=== PATIENT | female | born 1950 | race Caucasian/White ===

== ENCOUNTER 2018-10-02 07:13 | Day surgery (SDC) | payer OTHER ==
[2018-10-02] MEDS ORDERED: MIDAZOLAM 1 MG/ML 2 ML INJ ×2 (09:58)
[2018-10-02] MEDS ORDERED: FENTAnyl 50 MCG/ML VIAL (09:58)
== END 2018-10-02 12:24 | disposition home or self-care (01) ==
LOC: GIL 07:13
DX: K29.50 Unspecified chronic gastritis without bleeding (principal); B96.81 Helicobacter pylori [H. pylori] as the cause of diseases classified elsewhere; K64.8 Other hemorrhoids; K21.9 Gastro-esophageal reflux disease without esophagitis; I10 Essential (primary) hypertension; E11.9 Type 2 diabetes mellitus without complications
CPT/HCPCS: 43239; 82962; 88305; 88312